=== PATIENT | female | born 1995 | race Caucasian/White ===

== ENCOUNTER 2017-09-17 20:10 | Emergency (ER) | payer OTHER ==
[2017-09-17] MEDS ORDERED: Ketorolac Tromethamine 30 MG/ML VIAL ONE (21:09)
[2017-09-17 21:22] LABS: #Basophils 0.1 thou/uL (0.0-0.2); #Eosinphils 0.1 thou/uL (0.0-0.7); #Lymphocytes 3.3 thou/uL (1.20-3.40); #Monocytes 0.7 thou/uL (0.11-0.59); #Neutrophils 9.9 thou/uL (1.40-6.50); %Eosinophils 0.4 % (0.0-10.0); %Lymphocytes 23.5 % (21.0-51.0); %Monocytes 4.7 % (0.0-10.0); %Neutrophils 70.4 % (42.0-75.0); Anisocytosis SLIGHT = 6-15 cells (100X) (0-5/hpf); Hemoglobin 12.3 g/dL (12.0-16.0); Hypochromia SLIGHT = 6-15 cells (100X) (0-5/hpf); MDiff Complete? YES; Mean Corpuscular HGB CONC 32.6 g/dL (32.0-36.0); Mean Corpuscular Hemoglobin 24.8 pg (27.0-31.0); Mean Platelet Volume 7.3 fL (7.4-10.4); Microcytosis SLIGHT = 6-15 cells (100X) (0-5/hpf); PLT Morphology Comment Appears Adequate; Platelet Count 392 thou/uL (130-400); Polychromasia SLIGHT = 2-3 cells (100X) (0-2/hpf); Red Blood Cell (RBC) Count 4.96 mill/uL (4.20-5.40)
[2017-09-17 21:23] LABS: Anion Gap 15 mmol/L (10-20); BUN (Urea Nitrogen) 11 mg/dL (7.0-18.7); Calc. Creatinine Clearance 0 mL/min (70-130); Calcium 9.8 mg/dL (7.8-10.44); Carbon Dioxide 23 mmol/L (22-29); Chloride 106 mmol/L (98-107); Estimated GFR-MDRD Greater than 90; Glucose 102 mg/dL (70-105); Sodium 140 mmol/L (136-145)
--- NOTE | 2017-09-17 23:54 | CT ---
CT HEAD WITHOUT CONTRAST: HISTORY: Headache. Allergic reaction to Augmentin. COMPARISON: 01/01/2011 FINDINGS: No parenchymal hemorrhage. No extraaxial hematoma. No midline shift. The basilar cisterns are arnold nt. Brain volume is age appropriate. Cortical taylor white matter differentiation is preserved. The ventricles and sulci are patent and symmetric. The calvarium is intact. Adequate aeration of the si nuses and mastoid air cells. IMPRESSION: No acute intracranial process. POS: [facility]
== END 2017-09-17 21:37 | disposition home or self-care (01) ==
LOC: SCSER 20:10
DX: R25.3 Fasciculation (principal); T36.0X5A Adverse effect of penicillins, initial encounter; F41.9 Anxiety disorder, unspecified; Z79.899 Other long term (current) drug therapy
CPT/HCPCS: 70450; 80048; 85025; 96372; J1885